=== PATIENT | male | born 1935 | race Caucasian/White ===

== ENCOUNTER 2017-05-08 12:30 | Outpatient (CLI) | payer MEDICARE, BC ==
--- NOTE | 2017-05-08 14:18 | CT ---
CT CHEST WITH CONTRAST: HISTORY: R91.1, lung nodule. Emphysema. COMPARISON: CT chest 10/19/16. FINDINGS: The lingular pulmonary nodule measured just 14 mm, unchanged from comparison examination. Severe emphysematous changes. No new suspicious pulmonary nodule. No effusion. No consolidation. No pneumothorax. No adenopathy. Thyroid is unremarkable. No aneurysmal dilatation of the aorta. There is extensive soft plaque throughout the aorta. There is some mild cortical thinning of the kidneys. Prior cholecystectomy. IMPRESSION: Unchanged lingular pulmonary nodule. As a conservative measure, a followup CT in 6 months recommende d. POS: [facility]
[2017-05-08] MEDS ORDERED: Iopamidol 370 76% 100 ML VIAL ONE (16:20)
== END 2017-05-08 12:31 | disposition home or self-care (01) ==
LOC: CT 12:30
PROVIDERS: ATTEND Internal Medicine Pulmonary Disease
DX: R91.1 Solitary pulmonary nodule (principal)
CPT/HCPCS: 71260

== ENCOUNTER 2017-11-21 14:10 | Outpatient (CLI) | payer MEDICARE, BC ==
--- NOTE | 2017-11-21 14:43 | RAD ---
PA AND LATERAL CHEST: HISTORY: Dyspnea. COMPARISON: 11/08/2006 FINDINGS: Heart size is within normal limits. There are postop sternotomy changes. COPD changes are present. 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 IMPRESSION: Stable examination. POS: [facility]
== END 2017-11-21 14:11 | disposition home or self-care (01) ==
LOC: RAD 14:10
PROVIDERS: ATTEND Internal Medicine Pulmonary Disease
DX: R06.00 Dyspnea, unspecified (principal)
CPT/HCPCS: 71046

== ENCOUNTER 2018-07-02 14:34 | Outpatient (CLI) | payer MEDICARE, BC ==
--- NOTE | 2018-07-02 14:51 | RAD ---
Exam: Chest 2 views HISTORY:Dyspnea Comparison: 11/22/1979 FINDINGS: Lungs: Hyperinflated, with interstitial prominence, stable. Cardiac silhouette:Prior sternotomy. Stable in size Pulmonary vessels: Normal Pleural Spaces: Minimal pleural-based density at the left costophrenic sulcus Pneumothorax: None Osseous abnormalities: None of acuity. IMPRESSION: COPD
== END 2018-07-02 14:35 | disposition home or self-care (01) ==
LOC: RAD 14:34
PROVIDERS: ATTEND Internal Medicine Pulmonary Disease
DX: R06.00 Dyspnea, unspecified (principal); J44.9 Chronic obstructive pulmonary disease, unspecified
CPT/HCPCS: 71046

== ENCOUNTER 2018-12-30 15:48 | Outpatient (CLI) | payer MEDICARE, BC ==
--- NOTE | 2018-12-30 16:18 | RAD ---
Exam: Chest 2 views HISTORY:Dyspnea Comparison: 07/02/2018 FINDINGS: Lungs: No masses or consolidation. Interstitial prominence of the lower lung zones, similar appearing. Cardiac silhouette:Stable in appearance, with evidence of prior sternotomy Pulmonary vessels: Normal Pleural Spaces: Clear Pneumothorax: None Osseous abnormalities: None of acuity. IMPRESSION: Stable chest.
== END 2018-12-30 15:49 | disposition home or self-care (01) ==
LOC: RAD 15:48
PROVIDERS: ATTEND Internal Medicine Pulmonary Disease
DX: R06.00 Dyspnea, unspecified (principal)
CPT/HCPCS: 71046

== ENCOUNTER 2021-01-06 13:20 | Outpatient (CLI) | payer MEDICARE, BC | END 2021-01-06 13:21 | disposition home or self-care (01) | LOC: RAD 13:20 | PROVIDERS: ATTEND Internal Medicine Pulmonary Disease | DX: R06.00 Dyspnea, unspecified (principal) | CPT/HCPCS: 71046 ==

== ENCOUNTER 2022-01-11 10:21 | Outpatient (CLI) | payer MEDICARE, BC | END 2022-01-11 10:22 | disposition home or self-care (01) | LOC: RAD 10:21 | PROVIDERS: ATTEND Internal Medicine Critical Care Medicine | DX: R06.00 Dyspnea, unspecified (principal) | CPT/HCPCS: 71046 ==

== ENCOUNTER 2023-02-05 15:38 | Outpatient (CLI) | payer MEDICARE, BC | END 2023-02-05 15:39 | disposition home or self-care (01) | LOC: RAD 15:38 | PROVIDERS: ATTEND Internal Medicine Critical Care Medicine | DX: R06.00 Dyspnea, unspecified (principal) | CPT/HCPCS: 71046 ==